=== PATIENT | female | born 1950 | race Caucasian/White ===

== ENCOUNTER → 2017-04-16 | Outpatient (CLI) | payer BC ==
[~2017-04-16] MED LIST: CINN500C2 PO; FLUO40CA2 PO; LOSA1TAB17 PO; METF10002 PO; OMEP20CA9 PO
== END | disposition home or self-care (01) ==
LOC: RAD 08:37
PROVIDERS: ATTEND Nurse Practitioner Primary Care
DX: G93.89 Other specified disorders of brain (principal); R90.82 White matter disease, unspecified
CPT/HCPCS: 70551

== ENCOUNTER 2018-08-24 15:13 | Inpatient (IN) | payer BC, MEDICARE ==
[~2018-08-24] VITALS: Ht 167.6 cm; Wt 97.5 kg
[~2018-08-24 15:13] MED LIST changes: -LOSA1TAB17 PO; +LOSA1TAB22 PO
[2018-08-24 16:05] LABS: BASOPHILS # (AUTO) 0.09 x10^3/uL (0-0.1); BASOPHILS % (AUTO) 1 % (0-1); EOSINOPHILS # (AUTO) 0.21 x10^3/uL (0-0.4); EOSINOPHILS % (AUTO) 2 % (1-7); LYMPHOCYTES # (AUTO) 1.75 x10^3/uL (1-3.4); LYMPHOCYTES % (AUTO) 19 % (22-44); MD NO; MEAN CORPUSCULAR HEMOGLOBIN 28.6 pg (27.0-34.8); MEAN CORPUSCULAR HGB CONC 33.2 g/dL (32.4-35.8); MEAN CORPUSCULAR VOLUME 86.2 fL (80-100); MEAN PLATELET VOLUME 8.5 fL (7.4-10.4); MONOCYTES # (AUTO) 0.56 x10^3/uL (0.2-0.8); MONOCYTES % (AUTO) 6 % (2-9); NEUTROPHILS # (AUTO) 6.74 x10^3/uL (1.8-6.8); NEUTROPHILS % (AUTO) 72 % (42-75); PLATELET COUNT 263 x10^3/uL (130-400); RED BLOOD COUNT 4.42 x10^6/uL (3.82-5.3); RED CELL DISTRIBUTION WIDTH 13.2 % (9.6-15.2)
[2018-08-24 16:13] LABS: ALANINE AMINOTRANSFERASE 47 U/L (12-78); ALBUMIN 3.3 g/dL (3.4-5.0); ANION GAP 11 mmol/L (5-15); CALCIUM 7.6 mg/dL (8.5-10.1); CHLORIDE 108 mmol/L (98-107); CREATININE 1.01 mg/dL (0.55-1.02)
[2018-08-24 16:17] LABS: ALKALINE PHOSPHATASE 132 U/L (45-117); BILIRUBIN,TOTAL 0.3 mg/dL (0.2-1.0); TROPONIN I < 0.015 ng/mL (0.000-0.045)
[2018-08-24] MEDS ORDERED: SODIUM CHLORIDE FLUSH 10ML SYR IVF ONE (17:00)
[2018-08-24] MEDS ORDERED: NITROGLYCERIN SINGLE TAB 0.4 MG SL PRN (17:30)
[2018-08-24] MEDS ORDERED: NITROGLYCERIN SINGLE TAB 0.4 MG SL ONE (17:51)
[2018-08-24] MEDS ORDERED: SODIUM CHLORIDE FLUSH 10ML SYR IVF PRN (18:30)
[2018-08-24] MEDS ORDERED: ONDANSETRON 2MG/ML, 2ML ONE (18:45)
[2018-08-24] MEDS ORDERED: ACETAMINOPHEN 325 MG TABLET ONE (18:45)
[2018-08-24] MEDS ORDERED: ACETAMINOPHEN 325 MG TABLET PO ONE (19:00)
[2018-08-24] MEDS ORDERED: ONDANSETRON 2MG/ML, 2ML IVPush ONE (19:00)
[2018-08-24] MEDS ORDERED: ACETAMINOPHEN 325 MG TABLET PO PRN (19:30)
[2018-08-24] MEDS ORDERED: OXYcodone IR 5MG TABLET PO PRN (19:30)
[2018-08-24] MEDS ORDERED: CYCLOBENZAPRINE 10 MG TABLET PO PRN (19:30)
[2018-08-24] MEDS ORDERED: POLYETHYLENE GLYCOL 17 GM PACKET PO PRN (19:30)
[2018-08-24] MEDS ORDERED: DOCUSATE 100 MG CAPSULE PO PRN (19:30)
[2018-08-24] MEDS ORDERED: morphine SULFATE 10 MG/ML, 1ML IVPush PRN (19:30)
[2018-08-24] MEDS ORDERED: ONDANSETRON 2MG/ML, 2ML IVPush PRN (19:30)
[2018-08-24] MEDS ORDERED: NITROGLYCERIN 0.4 MG BOTTLE (25 TABS) SL PRN (19:30)
[2018-08-24] MEDS ORDERED: PROMETHAZINE 25 MG/ML, 1ML IM PRN (19:30)
[2018-08-24] MEDS ORDERED: ONDANSETRON ODT 4 MG PO PRN (19:30)
[2018-08-24] MEDS ORDERED: BISACODYL 10 MG SUPP PR PRN (19:30)
[2018-08-24] MEDS ORDERED: hydrALAzine 20 MG/ML, 1ML IVPush PRN (19:30)
[2018-08-24] MEDS ORDERED: LABETALOL 5MG/ML, 20ML IVPush PRN (19:30)
[2018-08-24 19:45] LABS: FREE T4 (FREE THYROXINE) 1.18 ng/dL (0.76-1.46); THYROID STIMULATING HORMONE 2.32 mIU/L (0.358-3.740)
[2018-08-24 20:05] LABS: HEMOGLOBIN A1C 7.4 % (4.2-6.3)
[2018-08-24] MEDS: INSULIN LISPRO 100 UNITS/ML, PEN SQ-INSULIN SCH (20:23)
[2018-08-24] MEDS: HEPARIN 5,000 UNITS/ML, 1ML SQ SCH (20:48)
[2018-08-24 21:46] LABS: MICROSCOPIC AUTO
[2018-08-24 21:48] LABS: CULTURE INDICATED? YES
[2018-08-24 22:00] VITALS: BP 180/106
[2018-08-24] MEDS ORDERED: METOPROLOL 1 MG/ML, 5ML ONE (22:12)
[2018-08-24] MEDS ORDERED: METOPROLOL 1 MG/ML, 5ML IVPush ONE (22:30)
[2018-08-24 22:33] LABS: TROPONIN I 0.133 ng/mL (0.000-0.045)
[2018-08-24 22:50] VITALS: BP 167/85
[2018-08-24] MEDS: CEFTRIAXONE PMX 1GM/50ML 50 ML IV SCH (23:53)
[2018-08-25 02:24] VITALS: BP 149/81
[2018-08-25 02:46] LABS: BASOPHILS # (AUTO) 0.07 x10^3/uL (0-0.1); BASOPHILS % (AUTO) 1 % (0-1); EOSINOPHILS # (AUTO) 0.35 x10^3/uL (0-0.4); EOSINOPHILS % (AUTO) 4 % (1-7); LYMPHOCYTES # (AUTO) 2.61 x10^3/uL (1-3.4); LYMPHOCYTES % (AUTO) 27 % (22-44); MD NO; MEAN CORPUSCULAR HEMOGLOBIN 28.8 pg (27.0-34.8); MEAN CORPUSCULAR HGB CONC 33.3 g/dL (32.4-35.8); MEAN CORPUSCULAR VOLUME 86.4 fL (80-100); MEAN PLATELET VOLUME 8.6 fL (7.4-10.4); MONOCYTES # (AUTO) 0.71 x10^3/uL (0.2-0.8); MONOCYTES % (AUTO) 7 % (2-9); NEUTROPHILS # (AUTO) 6.05 x10^3/uL (1.8-6.8); NEUTROPHILS % (AUTO) 62 % (42-75); PLATELET COUNT 267 x10^3/uL (130-400); RED BLOOD COUNT 4.41 x10^6/uL (3.82-5.3); RED CELL DISTRIBUTION WIDTH 13.1 % (9.6-15.2)
[2018-08-25 03:00] LABS: ALANINE AMINOTRANSFERASE 44 U/L (12-78); ALBUMIN 3.1 g/dL (3.4-5.0); ANION GAP 7 mmol/L (5-15); CALCIUM 7.8 mg/dL (8.5-10.1); CHLORIDE 107 mmol/L (98-107); CREATININE 1.02 mg/dL (0.55-1.02)
[2018-08-25 03:02] LABS: ALKALINE PHOSPHATASE 118 U/L (45-117); BILIRUBIN,TOTAL 0.3 mg/dL (0.2-1.0); CHOL/HDL RATIO 4.2; CHOLESTEROL, TOTAL 159 mg/dL (140-239); HDL CHOL % 24 % (28-40); HDL CHOLESTEROL (DIRECT) 38 mg/dL (40-60); LDL CHOLESTEROL,CALCULATED 83 mg/dL (54-169); LDL/HDL RATIO 2.2 (0.5-3.0); TOTAL PROTEIN 7.3 g/dL (6.4-8.2); TRIGLYCERIDES 188 mg/dL (50-200); VLDL CHOLESTEROL 38 mg/dL (0-25)
[2018-08-25] MEDS: HEPARIN 5,000 UNITS/ML, 1ML SQ SCH ×3 (04:59→20:09)
[2018-08-25] MEDS: OMEPRAZOLE 20 MG CAPSULE.DR PO SCH (05:01)
[2018-08-25] MEDS ORDERED: ASPIRIN 325 MG TABLET EC PO SCH (06:00)
[2018-08-25] MEDS: INSULIN LISPRO 100 UNITS/ML, PEN SQ-INSULIN SCH ×4 (08:55→20:16)
[2018-08-25] MEDS: HYDROCHLOROTHIAZIDE 25 MG TABLET PO SCH (08:57)
[2018-08-25] MEDS: FLUOXETINE HCL 20 MG CAPSULE PO SCH (08:57)
[2018-08-25] MEDS: LOSARTAN 50MG TABLET PO SCH (08:57)
[2018-08-25 09:40] VITALS: BP 148/87
[2018-08-25] MEDS ORDERED: SODIUM CHLORIDE 0.9% 1,000 ML IV ONE (11:36)
[2018-08-25 12:21] VITALS: BP 146/84
[2018-08-25] MEDS ORDERED: OMEG1CAP6 PO (12:59)
[2018-08-25] MEDS ORDERED: TICAGRELOR 90 MG TABLET ONE (13:16)
[2018-08-25] MEDS ORDERED: BIVALIRUDIN 250 MG ONE (13:16)
[2018-08-25] MEDS ORDERED: MIDAZOLAM 1 MG/ML, 5ML ONE (13:16)
[2018-08-25] MEDS ORDERED: FENTANYL PF 100 MCG/2ML ONE (13:16)
[2018-08-25] MEDS ORDERED: NITROGLYCERIN 5 MG/ML, 10ML ONE (13:16)
[2018-08-25] MEDS ORDERED: VERAPAMIL 2.5 MG/ML, 2ML ONE (13:16)
[2018-08-25] MEDS ORDERED: HEPARIN 1,000 UNITS/ML, 10ML ONE (13:17)
[2018-08-25] MEDS ORDERED: LIDOCAINE/PF 1%, 30ML ONE (13:17)
[2018-08-25] MEDS ORDERED: AMLODIPINE 2.5 MG TABLET PO ONE (17:30)
[2018-08-25] MEDS: CLOPIDOGREL 75 MG TABLET PO SCH (17:30)
[2018-08-25] MEDS ORDERED: AMLODIPINE 2.5 MG TABLET ONE (17:32)
[2018-08-25] MEDS ORDERED: CARVEDILOL 6.25 MG TABLET PO SCH (18:00)
[2018-08-25] MEDS: ATORVASTATIN 20 MG TABLET PO SCH (20:09)
[2018-08-25 20:31] VITALS: BP 123/77
[2018-08-25] MEDS: CEFTRIAXONE PMX 1GM/50ML 50 ML IV SCH (22:57)
[2018-08-26 01:12] VITALS: BP 132/65
[2018-08-26] MEDS: ASPIRIN 81 MG TABLET EC PO SCH (05:04)
[2018-08-26] MEDS: OMEPRAZOLE 20 MG CAPSULE.DR PO SCH (05:04)
[2018-08-26] MEDS: HEPARIN 5,000 UNITS/ML, 1ML SQ SCH ×3 (05:04→20:13)
[2018-08-26 05:49] LABS: ANION GAP 9 mmol/L (5-15); CALCIUM 8.2 mg/dL (8.5-10.1); CHLORIDE 107 mmol/L (98-107); CREATININE 1.13 mg/dL (0.55-1.02)
[2018-08-26 08:09] VITALS: BP 153/84
[2018-08-26] MEDS: INSULIN LISPRO 100 UNITS/ML, PEN SQ-INSULIN SCH ×4 (08:10→20:27)
[2018-08-26] MEDS: HYDROCHLOROTHIAZIDE 25 MG TABLET PO SCH (08:10)
[2018-08-26] MEDS: LOSARTAN 50MG TABLET PO SCH (08:11)
[2018-08-26] MEDS: CLOPIDOGREL 75 MG TABLET PO SCH (08:11)
[2018-08-26] MEDS: FLUOXETINE HCL 20 MG CAPSULE PO SCH (08:11)
[2018-08-26 12:40] VITALS: BP 147/79
[2018-08-26 19:14] VITALS: BP 138/72
[2018-08-26] MEDS: ATORVASTATIN 20 MG TABLET PO SCH (20:12)
[2018-08-26] MEDS: CEFTRIAXONE PMX 1GM/50ML 50 ML IV SCH (23:30)
[2018-08-27 01:39] VITALS: BP 129/78
[2018-08-27] MEDS: OMEPRAZOLE 20 MG CAPSULE.DR PO SCH (05:10)
[2018-08-27] MEDS: ASPIRIN 81 MG TABLET EC PO SCH (05:10)
[2018-08-27] MEDS: HEPARIN 5,000 UNITS/ML, 1ML SQ SCH (05:10)
[2018-08-27 05:39] LABS: ANION GAP 8 mmol/L (5-15); CALCIUM 8.5 mg/dL (8.5-10.1); CHLORIDE 107 mmol/L (98-107); CREATININE 0.87 mg/dL (0.55-1.02)
[2018-08-27] MEDS: INSULIN LISPRO 100 UNITS/ML, PEN SQ-INSULIN SCH ×2 (07:00→11:49)
[2018-08-27 07:27] VITALS: BP 151/85
[2018-08-27] MEDS: HYDROCHLOROTHIAZIDE 25 MG TABLET PO SCH (08:31)
[2018-08-27] MEDS: FLUOXETINE HCL 20 MG CAPSULE PO SCH (08:31)
[2018-08-27] MEDS: CLOPIDOGREL 75 MG TABLET PO SCH (08:31)
[2018-08-27] MEDS: LOSARTAN 50MG TABLET PO SCH (08:32)
[2018-08-27] MEDS ORDERED: CEFD300C37 PO (11:34)
[2018-08-27] MEDS ORDERED: ATOR20TA37 PO (11:34)
[2018-08-27] MEDS ORDERED: CLOP75TA PO (11:34)
[2018-08-27] MEDS ORDERED: ASPI81TA45 PO (11:34)
[2018-08-27 13:09] VITALS: BP 135/80
== END 2018-08-27 13:51 | disposition home or self-care (01) | DRG 282 ==
LOC: ED 18:05 → EDIP 18:06 → ED 18:21 → 5SO 20:34 → DCLOUNGE 08-27 13:35
PROVIDERS: ADMIT Internal Medicine; ATTEND Internal Medicine
PROC: 4A023N7 Measurement of Cardiac Sampling and Pressure, Left Heart, Percutaneous Approach (ICD-10-PCS; principal; 2018-08-25)
PROC: B2111ZZ Fluoroscopy of Multiple Coronary Arteries using Low Osmolar Contrast (ICD-10-PCS; 2018-08-25)
PROC: B2151ZZ Fluoroscopy of Left Heart using Low Osmolar Contrast (ICD-10-PCS; 2018-08-25)
DX: I21.4 Non-ST elevation (NSTEMI) myocardial infarction (principal); I25.110 Atherosclerotic heart disease of native coronary artery with unstable angina pectoris; I25.82 Chronic total occlusion of coronary artery; I16.0 Hypertensive urgency; F41.9 Anxiety disorder, unspecified; K21.9 Gastro-esophageal reflux disease without esophagitis; I10 Essential (primary) hypertension; E11.65 Type 2 diabetes mellitus with hyperglycemia; E78.5 Hyperlipidemia, unspecified; F32.9 Major depressive disorder, single episode, unspecified; I34.0 Nonrheumatic mitral (valve) insufficiency; J06.9 Acute upper respiratory infection, unspecified; Z82.49 Family history of ischemic heart disease and other diseases of the circulatory system; Z87.891 Personal history of nicotine dependence; Z90.710 Acquired absence of both cervix and uterus; Z88.0 Allergy status to penicillin; Z79.82 Long term (current) use of aspirin; Z79.899 Other long term (current) drug therapy
CPT/HCPCS: 36415; 71045; 80048; 80053; 80061; 81001; 82962; 83036; 83735; 84439; 84443; 84484; 85025; 87040; 87086; 93005; 93306; 93458; 96374; 99156; 99157; 99285; C1769; C1894; G0378; J0583; J0696; J1644; J2250; J2405; J3010; J3490; J1815; J7030; Q9967

== ENCOUNTER 2018-09-01 12:03 | Inpatient (IN) | payer BC, MEDICARE ==
[~2018-09-01] VITALS: Ht 167.6 cm; Wt 100.0 kg
[~2018-09-01 12:03] MED LIST changes: +ASPI81TA45 PO; +ATOR20TA37 PO; +CEFD300C37 PO; +CLOP75TA PO; +OMEG1CAP6 PO
[2018-09-01] MEDS ORDERED: VANCOMYCIN PMX 1GM/200ML 200 ML IVPB SCH (12:30)
[2018-09-01] MEDS ORDERED: ATOR20TA37 PO (12:52)
[2018-09-01] MEDS ORDERED: ASPI-496 PO (12:52)
[2018-09-01] MEDS ORDERED: CLOP75TA52 PO (12:52)
[2018-09-01] MEDS ORDERED: FENTANYL PF 100 MCG/2ML ONE (13:56)
[2018-09-01] MEDS ORDERED: VANCOMYCIN PMX 1GM/200ML 200 ML ONE (13:57)
[2018-09-01] MEDS ORDERED: MIDAZOLAM 1 MG/ML, 5ML ONE (13:57)
[2018-09-01] MEDS ORDERED: LIDOCAINE-MPF 1%, 5ML ONE (13:57)
[2018-09-01] MEDS ORDERED: VANCOMYCIN 500 MG ONE (13:57)
[2018-09-01] MEDS ORDERED: ZOLPIDEM 5MG TABLET PO PRN (16:00)
[2018-09-01] MEDS ORDERED: HYDROcodone/APAP 5/325 TABLET PO PRN (16:00)
[2018-09-01] MEDS ORDERED: HOLD MEDICATION MC PRN (16:00)
[2018-09-01] MEDS: SODIUM CHLORIDE 0.9% 1,000 ML IV SCH ×2 (17:20→20:24)
[2018-09-01] MEDS: metFORMIN 500 MG TABLET PO SCH (18:21)
[2018-09-01] MEDS ORDERED: LABETALOL 5MG/ML, 20ML IVPush PRN (18:30)
[2018-09-01] MEDS: ACETAMINOPHEN 325 MG TABLET PO PRN (18:37)
[2018-09-01 19:48] VITALS: BP 160/84
[2018-09-01] MEDS: SODIUM CHLORIDE FLUSH 10ML SYR IVF SCH (20:37)
[2018-09-01] MEDS ORDERED: ATORVASTATIN 20 MG TABLET PO SCH (21:00)
[2018-09-02 00:06] VITALS: BP 160/92
[2018-09-02] MEDS: ACETAMINOPHEN 325 MG TABLET PO PRN ×2 (00:19→10:58)
[2018-09-02] MEDS ORDERED: ASPIRIN 81 MG TABLET EC PO SCH (06:00)
[2018-09-02 06:45] VITALS: BP 163/95
[2018-09-02] MEDS: SODIUM CHLORIDE FLUSH 10ML SYR IVF SCH (08:23)
[2018-09-02] MEDS: metFORMIN 500 MG TABLET PO SCH (08:23)
[2018-09-02] MEDS ORDERED: CLOPIDOGREL 75 MG TABLET PO SCH (09:00)
[2018-09-02] MEDS ORDERED: LOSARTAN 50MG TABLET PO SCH (09:00)
[2018-09-02] MEDS ORDERED: FLUOXETINE HCL 20 MG CAPSULE PO SCH (09:00)
[2018-09-02] MEDS ORDERED: CARV3.122 PO (09:08)
== END 2018-09-02 11:30 | disposition home or self-care (01) | DRG 242 ==
LOC: CACL 12:03 → ORIP 15:46 → 5SO 16:05 → DCLOUNGE 09-02 11:20
PROVIDERS: ADMIT Internal Medicine Cardiovascular Disease; ATTEND Internal Medicine Cardiovascular Disease
PROC: 0JH606Z Insertion of Pacemaker, Dual Chamber into Chest Subcutaneous Tissue and Fascia, Open Approach (ICD-10-PCS; principal; 2018-09-01)
PROC: 02H63JZ Insertion of Pacemaker Lead into Right Atrium, Percutaneous Approach (ICD-10-PCS; 2018-09-01)
PROC: 02HK3JZ Insertion of Pacemaker Lead into Right Ventricle, Percutaneous Approach (ICD-10-PCS; 2018-09-01)
PROC: 4B02XSZ Measurement of Cardiac Pacemaker, External Approach (ICD-10-PCS; 2018-09-01)
DX: I44.2 Atrioventricular block, complete (principal); I21.9 Acute myocardial infarction, unspecified; E11.9 Type 2 diabetes mellitus without complications; E66.9 Obesity, unspecified; I45.4 Nonspecific intraventricular block; I10 Essential (primary) hypertension; K21.9 Gastro-esophageal reflux disease without esophagitis; I25.10 Atherosclerotic heart disease of native coronary artery without angina pectoris; E78.2 Mixed hyperlipidemia; E55.9 Vitamin D deficiency, unspecified; F32.9 Major depressive disorder, single episode, unspecified; Z88.0 Allergy status to penicillin; Z68.35 Body mass index [BMI] 35.0-35.9, adult; Z79.84 Long term (current) use of oral hypoglycemic drugs
CPT/HCPCS: 33208; 71045; 93005; 99156; 99157; C1779; C1785; C1892; G0378; J2250; J3010; J3370

== ENCOUNTER → 2018-11-24 | Outpatient (CLI) | payer BC, MEDICARE ==
[~2018-11-24] MED LIST changes: +ASPI-496 PO; +CARV3.122 PO; +CLOP75TA52 PO; +REGADENOSON 0.4 MG/5 ML SYRINGE ONE
== END | disposition home or self-care (01) ==
LOC: CVU 10:44
PROVIDERS: ATTEND Internal Medicine Cardiovascular Disease
DX: I65.23 Occlusion and stenosis of bilateral carotid arteries (principal); I10 Essential (primary) hypertension; E78.5 Hyperlipidemia, unspecified; I25.2 Old myocardial infarction; E11.9 Type 2 diabetes mellitus without complications; Z95.0 Presence of cardiac pacemaker
CPT/HCPCS: 78452; 93017; 93880; A9502; J2785

== ENCOUNTER → 2019-01-10 | Outpatient (CLI) | payer BC, MEDICARE ==
[~2019-01-10] MED LIST changes: +AMLO10TA8 PO; +APIX2.5T PO; +CARV3.1212 PO; +GLYB2.5T2 PO; +LISI2.5T PO; -REGADENOSON 0.4 MG/5 ML SYRINGE ONE; +ROSU20TA2 PO
== END | disposition home or self-care (01) ==
LOC: STAR 11:38
PROVIDERS: ATTEND Podiatrist Foot & Ankle Surgery
DX: Z01.818 Encounter for other preprocedural examination (principal); M21.6X2 Other acquired deformities of left foot; E11.9 Type 2 diabetes mellitus without complications; Z88.0 Allergy status to penicillin; Z86.79 Personal history of other diseases of the circulatory system
CPT/HCPCS: 93005

== ENCOUNTER 2019-01-14 11:40 | Day surgery (SDC) | payer BC, MEDICARE ==
[~2019-01-14] VITALS: Ht 167.6 cm; Wt 89.4 kg
[2019-01-14] MEDS ORDERED: LACTATED RINGERS 1,000 ML IV SCH (12:19)
[2019-01-14 12:29] VITALS: BP 151/80
[2019-01-14] MEDS ORDERED: MIDAZOLAM 1 MG/ML, 2ML ONE (12:54)
[2019-01-14] MEDS ORDERED: FENTANYL PF 100 MCG/2ML ONE (12:54)
[2019-01-14] MEDS ORDERED: ROPIvacaine/PF 0.2%, 20 ML ONE (12:55)
[2019-01-14] MEDS ORDERED: LIDOCAINE-MPF 2% ,5ML ONE (12:56)
[2019-01-14] MEDS ORDERED: LIDOCAINE 2%, 6 ML JEL.PF.APP MM ONE (13:09)
[2019-01-14] MEDS ORDERED: EPHEDRINE 50 MG/ML, 1ML ONE (13:20)
[2019-01-14] MEDS ORDERED: SUCCINYLCHOLINE 20 MG/ML, 10ML ONE (13:20)
[2019-01-14] MEDS ORDERED: CLINDAMYCIN 150 MG/ML, 6ML ONE (13:33)
[2019-01-14] MEDS ORDERED: DEXAMETHASONE 4 MG/ML, 1ML ONE (13:53)
[2019-01-14] MEDS ORDERED: ROCURONIUM 10MG/ML,5ML ONE (13:53)
[2019-01-14] MEDS ORDERED: ONDANSETRON 2MG/ML, 2ML ONE ×2 (13:53)
[2019-01-14] MEDS ORDERED: PROPOFOL 10 MG/ML, 20ML ONE (13:53)
[2019-01-14] MEDS ORDERED: ACETAMINOPHEN 325 MG TABLET PO PRN (14:00)
[2019-01-14] MEDS ORDERED: PROMETHAZINE 25 MG/ML, 1ML IV PRN (14:00)
[2019-01-14] MEDS ORDERED: MORPHINE SULFATE 4 MG/ML, 1ML IVPush PRN (14:00)
[2019-01-14] MEDS ORDERED: PROMETHAZINE 12.5 MG SUPP PR PRN (14:00)
[2019-01-14] MEDS ORDERED: ONDANSETRON 2MG/ML, 2ML IV PRN (14:00)
[2019-01-14] MEDS ORDERED: HALOPERIDOL 5 MG/ML IV PRN (14:00)
[2019-01-14] MEDS ORDERED: OXYcodone 5 MG/5 ML ORAL.SOL UDC PO PRN (14:00)
[2019-01-14] MEDS ORDERED: DIAZEPAM 5 MG/ML, 10ML VIAL IVPush PRN (14:00)
[2019-01-14] MEDS ORDERED: hydrALAzine 20 MG/ML, 1ML IV PRN (14:00)
[2019-01-14] MEDS ORDERED: MIDAZOLAM 1 MG/ML, 2ML IV PRN (14:00)
[2019-01-14] MEDS ORDERED: HYDROmorphone 2 MG/ML, 1ML IVPush PRN (14:00)
[2019-01-14] MEDS ORDERED: FENTANYL PF 100 MCG/2ML IV PRN (14:00)
[2019-01-14] MEDS ORDERED: MEPERIDINE/PF 25MG/0.5ML IVPush PRN (14:00)
[2019-01-14] MEDS ORDERED: ONDANSETRON ODT 8 MG PO PRN (14:00)
[2019-01-14] MEDS ORDERED: ALBUTEROL SULFATE 2.5 MG/3 ML NPPB PRN (14:00)
[2019-01-14] MEDS ORDERED: LABETALOL 5 MG/ML SYRINGE IV PRN (14:00)
[2019-01-14] MEDS ORDERED: EPHEDRINE 50 MG/ML, 1ML IVPush PRN (14:00)
[2019-01-14] MEDS ORDERED: ALBUTEROL SULFATE 2.5 MG/3 ML ONE (14:43)
== END 2019-01-14 17:30 | disposition home or self-care (01) ==
LOC: OUT 11:40
PROVIDERS: ATTEND Podiatrist Foot & Ankle Surgery
DX: M92.62 Juvenile osteochondrosis of tarsus, left ankle (principal); M89.8X7 Other specified disorders of bone, ankle and foot; E78.2 Mixed hyperlipidemia; I10 Essential (primary) hypertension; I48.91 Unspecified atrial fibrillation; K21.9 Gastro-esophageal reflux disease without esophagitis; J44.9 Chronic obstructive pulmonary disease, unspecified; E11.9 Type 2 diabetes mellitus without complications; I25.10 Atherosclerotic heart disease of native coronary artery without angina pectoris; Z88.0 Allergy status to penicillin; Z95.0 Presence of cardiac pacemaker; Z79.82 Long term (current) use of aspirin; Z79.84 Long term (current) use of oral hypoglycemic drugs
CPT/HCPCS: 28118; 64445; 82962; 94640; C1713; J0330; J0360; J1100; J2250; J2405; J2704; J2795; J3010; J7120

== ENCOUNTER → 2019-02-01 | Outpatient (CLI) | payer MEDICARE ==
[~2019-02-01] MED LIST changes: +OMNIPAQUE 350 MG/ML, 100ML BOTTLE ONE
== END | disposition home or self-care (01) ==
LOC: CFH 09:57
PROVIDERS: ATTEND Internal Medicine Geriatric Medicine
DX: C49.A4 Gastrointestinal stromal tumor of large intestine (principal); K43.9 Ventral hernia without obstruction or gangrene; K86.1 Other chronic pancreatitis; Z90.49 Acquired absence of other specified parts of digestive tract
CPT/HCPCS: 74170; Q9967

== ENCOUNTER 2019-05-13 07:05 | Outpatient (CLI) | payer MEDICARE | END 2019-05-13 23:59 | disposition home or self-care (01) | LOC: CVU 07:05 | PROVIDERS: ATTEND Internal Medicine Cardiovascular Disease | DX: M79.604 Pain in right leg (principal); M79.605 Pain in left leg | CPT/HCPCS: 93922 ==

== ENCOUNTER 2019-06-20 13:26 | Outpatient (CLI) | payer MEDICARE ==
[~2019-06-20 13:26] MED LIST changes: -OMNIPAQUE 350 MG/ML, 100ML BOTTLE ONE
== END 2019-06-20 23:59 | disposition home or self-care (01) ==
LOC: CFH 13:26
PROVIDERS: ATTEND Internal Medicine Cardiovascular Disease
DX: R07.9 Chest pain, unspecified (principal); M47.814 Spondylosis without myelopathy or radiculopathy, thoracic region; Z95.0 Presence of cardiac pacemaker
CPT/HCPCS: 71046

== ENCOUNTER 2019-10-03 13:14 | Emergency (ER) | payer MEDICARE ==
[~2019-10-03] VITALS: Ht 167.6 cm; Wt 91.5 kg
[2019-10-03 14:08] LABS: BASOPHILS # (AUTO) 0.04 x10^3/uL (0-0.1); BASOPHILS % (AUTO) 1 % (0-1); EOSINOPHILS # (AUTO) 0.08 x10^3/uL (0-0.4); EOSINOPHILS % (AUTO) 1 % (1-7); LYMPHOCYTES # (AUTO) 1.15 x10^3/uL (1-3.4); LYMPHOCYTES % (AUTO) 17 % (22-44); MD NO; MEAN CORPUSCULAR HEMOGLOBIN 28.6 pg (27.0-34.8); MEAN CORPUSCULAR HGB CONC 32.6 g/dL (32.4-35.8); MEAN CORPUSCULAR VOLUME 87.5 fL (80-100); MEAN PLATELET VOLUME 8.2 fL (7.4-10.4); MONOCYTES # (AUTO) 0.41 x10^3/uL (0.2-0.8); MONOCYTES % (AUTO) 6 % (2-9); NEUTROPHILS # (AUTO) 5.09 x10^3/uL (1.8-6.8); NEUTROPHILS % (AUTO) 75 % (42-75); PLATELET COUNT 308 x10^3/uL (130-400); RED BLOOD COUNT 3.92 x10^6/uL (3.82-5.3); RED CELL DISTRIBUTION WIDTH 14.1 % (9.6-15.2)
[2019-10-03 14:14] LABS: ALBUMIN 3.1 g/dL (3.4-5.0); ANION GAP 8 mmol/L (5-15); CALCIUM 8.1 mg/dL (8.5-10.1); CHLORIDE 106 mmol/L (98-107); CREATININE 0.84 mg/dL (0.55-1.02)
--- NOTE | 2019-10-03 15:51 | NUR ---
PT TO ROOM FROM LOBBY
[2019-10-03] MEDS ORDERED: SODIUM CHLORIDE FLUSH 10ML SYR IVF ONE (16:00)
--- NOTE | 2019-10-03 16:00 | NUR ---
THIS IS A 69 YEAR OLD FEMALE WHO C.O OF "I HAVE HAD DIARRHEA X 5 WEEKS, MY PRIMARY TOLD ME TO COME IN." DENIES RECENT TRAVEL AND ABX. DISCUSSED PLAN OF CARE, STOOL SENT TO LAB. WARM BLANKET GIVEN.
[2019-10-03 16:05] LABS: CULTURE INDICATED? YES; MICROSCOPIC INDICATED
[2019-10-03 16:36] LABS: CLOSTRIDIUM DIFFICILE ANTIGEN NEGATIVE; CLOSTRIDIUM DIFFICILE TOXIN NEGATIVE (Negative)
[2019-10-03 17:07] VITALS: BP 126/77
--- NOTE | 2019-10-03 17:15 | NUR ---
PT TO CT SCAN
--- NOTE | 2019-10-03 17:36 | NUR ---
PT BACK FROM CT SCAN
[2019-10-03] MEDS ORDERED: OMNIPAQUE 350 MG/ML, 100ML BOTTLE ONE (17:38)
--- NOTE | 2019-10-03 18:27 | NUR ---
Patient/Caregiver given discharge instructions and they have confirmed that they understand the instructions. Patient ambulatory with steady gait.
== END 2019-10-03 18:28 | disposition home or self-care (01) ==
LOC: ED 16:05
DX: R19.7 Diarrhea, unspecified (principal); E11.65 Type 2 diabetes mellitus with hyperglycemia; I10 Essential (primary) hypertension
CPT/HCPCS: 36415; 74177; 80048; 81001; 82040; 85025; 87086; 87324; 89055; 99284; Q9967

== ENCOUNTER 2019-10-28 16:16 | Emergency (ER) | payer MEDICARE ==
[~2019-10-28] VITALS: Ht 167.6 cm; Wt 92.0 kg
[~2019-10-28 16:16] MED LIST changes: +ACID1TAB7 PO; +CARV12.52 PO
--- NOTE | 2019-10-28 17:01 | NUR ---
THIS IS A 69 YO F W/ C/O HTN X3 DAYS, BLURRED VISION, MURPHY AND OCCASIONAL CHEST "PINCHING". WAS SEEN 10/06/19 FOR SOB AND CP. DC AMLODIPINE 10/25/19. HTN X3 DAYS. RESP EVEN AND UNLABORED. VS STABLE. CURRENT BP 156/79. NADN. PT IS RESTING ON GURNEY W/ CALL LIGHT IN REACH. AWAITING EVAL FROM ED PROVIDER. DENIES FURTHER NEEDS AT THIS TIME.
[2019-10-28 18:25] LABS: BASOPHILS # (AUTO) 0.03 x10^3/uL (0-0.1); BASOPHILS % (AUTO) 0 % (0-1); EOSINOPHILS # (AUTO) 0.12 x10^3/uL (0-0.4); EOSINOPHILS % (AUTO) 2 % (1-7); LYMPHOCYTES # (AUTO) 1.64 x10^3/uL (1-3.4); LYMPHOCYTES % (AUTO) 21 % (22-44); MD NO; MEAN CORPUSCULAR HGB CONC 33.3 g/dL (32.4-35.8); MEAN CORPUSCULAR VOLUME 87.2 fL (80-100); MONOCYTES # (AUTO) 0.43 x10^3/uL (0.2-0.8); MONOCYTES % (AUTO) 5 % (2-9); NEUTROPHILS # (AUTO) 5.71 x10^3/uL (1.8-6.8); NEUTROPHILS % (AUTO) 72 % (42-75); PLATELET COUNT 186 x10^3/uL (130-400); RED BLOOD COUNT 4.04 x10^6/uL (3.82-5.3); RED CELL DISTRIBUTION WIDTH 14.2 % (9.6-15.2)
--- NOTE | 2019-10-28 18:26 | NUR ---
PT TO CT
[2019-10-28] MEDS ORDERED: MORPHINE SULFATE 4 MG/ML, 1ML IVPush PRN (18:30)
[2019-10-28] MEDS ORDERED: SODIUM CHLORIDE FLUSH 10ML SYR IVF ONE (18:30)
[2019-10-28] MEDS ORDERED: ASPIRIN 81 MG TABLET CHEW PO ONE (18:30)
[2019-10-28] MEDS ORDERED: METOPROLOL 1 MG/ML, 5ML IVPush PRN (18:30)
[2019-10-28] MEDS ORDERED: ASPIRIN 81 MG TABLET CHEW ONE (18:31)
[2019-10-28] MEDS ORDERED: METOPROLOL 1 MG/ML, 5ML ONE (18:31)
[2019-10-28] MEDS ORDERED: MORPHINE SULFATE 4 MG/ML, 1ML ONE (18:31)
[2019-10-28 18:34] LABS: ALBUMIN 3.5 g/dL (3.4-5.0); ANION GAP 7 mmol/L (5-15); CALCIUM 8.3 mg/dL (8.5-10.1); CHLORIDE 110 mmol/L (98-107)
--- NOTE | 2019-10-28 18:38 | NUR ---
PT REFUSING MORPHINE AND REQ TYLENOL. WILL UPDATE PROVIDER.
[2019-10-28 18:39] LABS: ALANINE AMINOTRANSFERASE 23 U/L (12-78); ALKALINE PHOSPHATASE 63 U/L (45-117); BILIRUBIN,TOTAL 0.4 mg/dL (0.2-1.0); TOTAL PROTEIN 6.7 g/dL (6.4-8.2); TROPONIN I < 0.015 ng/mL (0.000-0.045)
--- NOTE | 2019-10-28 19:02 | NUR ---
REPORT FROM TY[facility], ASSUMING CARE OF PT AT THIS TIME
[2019-10-28] MEDS ORDERED: ACETAMINOPHEN 325 MG TABLET PO ONE (19:30)
[2019-10-28] MEDS ORDERED: ACETAMINOPHEN 325 MG TABLET ONE (19:39)
--- NOTE | 2019-10-28 19:40 | NUR ---
UPDATED ON PT WANTING TYLENOL FOR HEADACHE AND PREFERING TO NOT HAVE AN IV AT THIS TIME. ADDITIONAL ORDERS RECIEVED
--- NOTE | 2019-10-28 19:46 | NUR ---
PT MEDICATED PER MAR, PT UP TO RESTROOM NO ASSIST REQUIRED.
--- NOTE | 2019-10-28 20:48 | NUR ---
MD AT BEDSIDE TO DISCUSS POC WITH PT
[2019-10-28 21:15] VITALS: BP 141/83
--- NOTE | 2019-10-28 21:16 | NUR ---
Patient/Caregiver given discharge instructions and they have confirmed that they understand the instructions. Patient ambulatory with steady gait.
== END 2019-10-28 21:33 | disposition home or self-care (01) ==
LOC: ED 17:24
DX: R51 Headache (principal); I10 Essential (primary) hypertension; H53.8 Other visual disturbances; E78.5 Hyperlipidemia, unspecified; E11.9 Type 2 diabetes mellitus without complications; I25.10 Atherosclerotic heart disease of native coronary artery without angina pectoris; K21.9 Gastro-esophageal reflux disease without esophagitis; J44.9 Chronic obstructive pulmonary disease, unspecified
CPT/HCPCS: 36415; 70450; 80053; 83690; 84484; 85025; 93005; 99284

== ENCOUNTER 2019-12-09 17:12 | Inpatient (IN) | payer MEDICARE ==
[~2019-12-09] VITALS: Ht 165.1 cm; Wt 87.8 kg
--- NOTE | 2019-12-09 19:08 | NUR ---
PT HAS CO SOB, WEAKNESS, SLIGHT CHEST PRESSURE. PT STATE SHE HAS BEEN FEELING WEAK SINCE SEP. WAS IN CARDIOLOGY APPOINTMENT THURSDAY, WAS TOLD TO COME IN TODAY W WORSENING SYMPTOMS. PT HAS CARDIAC HX INCLUDING, [place] W STENTS, PACER. PT HAS OCCLUDED ARTERY. LABS DRAWN, IV ESTABLISHE, [employer] ADMINISTRATOR
[2019-12-09 19:13] LABS: BASOPHILS # (AUTO) 0.03 x10^3/uL (0-0.1); BASOPHILS % (AUTO) 1 % (0-1); EOSINOPHILS # (AUTO) 0.18 x10^3/uL (0-0.4); EOSINOPHILS % (AUTO) 3 % (1-7); LYMPHOCYTES # (AUTO) 1.21 x10^3/uL (1-3.4); LYMPHOCYTES % (AUTO) 19 % (22-44); MD NO; MEAN CORPUSCULAR HEMOGLOBIN 27.7 pg (27.0-34.8); MEAN CORPUSCULAR HGB CONC 32.3 g/dL (32.4-35.8); MEAN CORPUSCULAR VOLUME 85.6 fL (80-100); MEAN PLATELET VOLUME 9.7 fL (7.4-10.4); MONOCYTES # (AUTO) 0.41 x10^3/uL (0.2-0.8); MONOCYTES % (AUTO) 7 % (2-9); NEUTROPHILS # (AUTO) 4.52 x10^3/uL (1.8-6.8); NEUTROPHILS % (AUTO) 71 % (42-75); PLATELET COUNT 213 x10^3/uL (130-400); RED CELL DISTRIBUTION WIDTH 14.8 % (9.6-15.2)
[2019-12-09 19:21] LABS: ALANINE AMINOTRANSFERASE 30 U/L (12-78); ALBUMIN 3.4 g/dL (3.4-5.0); ANION GAP 8 mmol/L (5-15); CALCIUM 8.1 mg/dL (8.5-10.1); CHLORIDE 112 mmol/L (98-107); CREATININE 0.97 mg/dL (0.55-1.02)
[2019-12-09 19:26] LABS: ALKALINE PHOSPHATASE 74 U/L (45-117); BILIRUBIN,TOTAL 0.6 mg/dL (0.2-1.0); TOTAL PROTEIN 6.6 g/dL (6.4-8.2); TROPONIN I < 0.015 ng/mL (0.000-0.045)
--- NOTE | 2019-12-09 20:32 | NUR ---
[facility] AT BEDSIDE.
--- NOTE | 2019-12-09 20:42 | NUR ---
REPORT TO [facility]. PT STABLE, READY TO GO
[2019-12-09] MEDS ORDERED: ONDANSETRON ODT 4 MG PO PRN (21:00)
[2019-12-09] MEDS ORDERED: TEMPLATE NON-FORMULARY MED. (Metformin Hcl** 1,000 MG) PO SCH (21:00)
[2019-12-09] MEDS ORDERED: BISACODYL 10 MG SUPP PR PRN (21:00)
[2019-12-09] MEDS ORDERED: ACETAMINOPHEN 325 MG TABLET PO PRN (21:00)
[2019-12-09] MEDS ORDERED: POLYETHYLENE GLYCOL 17 GM PACKET PO PRN (21:00)
[2019-12-09] MEDS ORDERED: POTASSIUM CHLORIDE 20 MEQ TAB.ER.PRT PO ONE (21:00)
[2019-12-09] MEDS ORDERED: IRBE1TAB37 PO (21:55)
[2019-12-09] MEDS: FUROSEMIDE 20 MG/2 ML IV SCH (22:30)
[2019-12-09] MEDS: ATORVASTATIN 80 MG TABLET PO SCH (22:30)
[2019-12-09] MEDS: LACTOBACILLUS CHEW TABLET PO SCH (22:30)
[2019-12-09] MEDS: CARVEDILOL 12.5 MG TABLET PO SCH (22:31)
[2019-12-09] MEDS: APIXABAN 5 MG TABLET PO SCH (22:31)
[2019-12-09] MEDS: SODIUM CHLORIDE FLUSH 10ML SYR IVF SCH (22:32)
[2019-12-09] MEDS: ASPIRIN 81 MG TABLET CHEW PO SCH (22:35)
[2019-12-10 01:13] LABS: TROPONIN I < 0.015 ng/mL (0.000-0.045)
[2019-12-10 02:09] VITALS: BP 145/85
[2019-12-10] MEDS: ASPIRIN 81 MG TABLET CHEW PO SCH (05:50)
[2019-12-10 06:48] LABS: BASOPHILS # (AUTO) 0.04 x10^3/uL (0-0.1); BASOPHILS % (AUTO) 1 % (0-1); EOSINOPHILS # (AUTO) 0.15 x10^3/uL (0-0.4); EOSINOPHILS % (AUTO) 3 % (1-7); LYMPHOCYTES # (AUTO) 1.43 x10^3/uL (1-3.4); LYMPHOCYTES % (AUTO) 24 % (22-44); MD NO; MEAN CORPUSCULAR HEMOGLOBIN 27.5 pg (27.0-34.8); MEAN CORPUSCULAR HGB CONC 32.1 g/dL (32.4-35.8); MEAN CORPUSCULAR VOLUME 85.7 fL (80-100); MEAN PLATELET VOLUME 9.1 fL (7.4-10.4); MONOCYTES # (AUTO) 0.47 x10^3/uL (0.2-0.8); MONOCYTES % (AUTO) 8 % (2-9); NEUTROPHILS % (AUTO) 65 % (42-75); PLATELET COUNT 195 x10^3/uL (130-400); RED BLOOD COUNT 3.98 x10^6/uL (3.82-5.3); RED CELL DISTRIBUTION WIDTH 14.9 % (9.6-15.2)
[2019-12-10 07:01] LABS: ANION GAP 7 mmol/L (5-15); CALCIUM 8.1 mg/dL (8.5-10.1); CHLORIDE 110 mmol/L (98-107)
[2019-12-10 07:06] LABS: TROPONIN I < 0.015 ng/mL (0.000-0.045)
[2019-12-10] MEDS: FUROSEMIDE 20 MG/2 ML IV SCH ×2 (07:30→16:43)
[2019-12-10] MEDS ORDERED: POTASSIUM CHLORIDE 20 MEQ TAB.ER.PRT PO SCH (08:00)
[2019-12-10 08:20] VITALS: BP 123/91
[2019-12-10] MEDS ORDERED: REGADENOSON 0.4 MG/5 ML SYRINGE ONE (08:34)
[2019-12-10] MEDS: SENNA/DOCUSATE TABLET PO SCH (09:00)
[2019-12-10] MEDS: POTASSIUM CHLORIDE 20 MEQ TAB.ER.PRT PO SCH ×2 (11:05→16:43)
[2019-12-10] MEDS: LACTOBACILLUS CHEW TABLET PO SCH ×3 (11:05→20:14)
[2019-12-10] MEDS: FLUOXETINE HCL 20 MG CAPSULE PO SCH (11:06)
[2019-12-10] MEDS: CARVEDILOL 12.5 MG TABLET PO SCH ×2 (11:06→20:14)
[2019-12-10] MEDS: SODIUM CHLORIDE FLUSH 10ML SYR IVF SCH ×2 (11:06→20:15)
[2019-12-10] MEDS: OMEPRAZOLE 20 MG CAPSULE.DR PO SCH (11:06)
[2019-12-10] MEDS: APIXABAN 5 MG TABLET PO SCH (11:06)
[2019-12-10] MEDS: LISINOPRIL 10 MG TABLET PO SCH (13:30)
[2019-12-10 13:32] VITALS: BP 130/79
[2019-12-10] MEDS: INSULIN LISPRO 100 UNITS/ML, PEN SQ-INSULIN SCH ×2 (16:54→20:14)
[2019-12-10 20:12] VITALS: BP 150/89
[2019-12-10] MEDS: ATORVASTATIN 80 MG TABLET PO SCH (20:14)
[2019-12-11 02:22] VITALS: BP 140/88
[2019-12-11] MEDS: ASPIRIN 81 MG TABLET CHEW PO SCH (05:32)
[2019-12-11 05:48] LABS: ANION GAP 7 mmol/L (5-15); CALCIUM 8.2 mg/dL (8.5-10.1); CHLORIDE 107 mmol/L (98-107); CREATININE 0.74 mg/dL (0.55-1.02)
[2019-12-11] MEDS: INSULIN LISPRO 100 UNITS/ML, PEN SQ-INSULIN SCH ×4 (07:00→20:59)
[2019-12-11 07:07] VITALS: BP 148/90
[2019-12-11] MEDS: FLUOXETINE HCL 20 MG CAPSULE PO SCH (08:24)
[2019-12-11] MEDS: POTASSIUM CHLORIDE 20 MEQ TAB.ER.PRT PO SCH (08:25)
[2019-12-11] MEDS: CARVEDILOL 12.5 MG TABLET PO SCH ×2 (08:25→20:59)
[2019-12-11] MEDS: LACTOBACILLUS CHEW TABLET PO SCH ×3 (08:25→20:58)
[2019-12-11] MEDS: OMEPRAZOLE 20 MG CAPSULE.DR PO SCH (08:26)
[2019-12-11] MEDS: LISINOPRIL 10 MG TABLET PO SCH (08:26)
[2019-12-11] MEDS: SENNA/DOCUSATE TABLET PO SCH (08:26)
[2019-12-11] MEDS: FUROSEMIDE 20 MG/2 ML IV SCH (08:27)
[2019-12-11] MEDS: SODIUM CHLORIDE FLUSH 10ML SYR IVF SCH ×2 (08:29→20:59)
[2019-12-11 14:30] VITALS: BP 130/69
[2019-12-11 19:51] VITALS: BP 149/54
[2019-12-11] MEDS: ATORVASTATIN 80 MG TABLET PO SCH (20:59)
[2019-12-12 02:35] VITALS: BP 136/78
[2019-12-12] MEDS: ASPIRIN 81 MG TABLET CHEW PO SCH (05:08)
[2019-12-12 06:00] LABS: ANION GAP 5 mmol/L (5-15); CALCIUM 8.2 mg/dL (8.5-10.1); CHLORIDE 109 mmol/L (98-107)
[2019-12-12 06:01] LABS: CREATININE 0.84 mg/dL (0.55-1.02)
[2019-12-12] MEDS: INSULIN LISPRO 100 UNITS/ML, PEN SQ-INSULIN SCH ×4 (07:00→20:33)
[2019-12-12 07:29] VITALS: BP 149/98
[2019-12-12] MEDS: SODIUM CHLORIDE FLUSH 10ML SYR IVF SCH ×2 (09:00→20:34)
[2019-12-12] MEDS ORDERED: VERAPAMIL 2.5 MG/ML, 2ML ONE (11:01)
[2019-12-12] MEDS ORDERED: LIDOCAINE-MPF 1%, 5ML ONE (11:01)
[2019-12-12] MEDS ORDERED: MIDAZOLAM 1 MG/ML, 2ML ONE ×2 (11:01→12:12)
[2019-12-12] MEDS ORDERED: FENTANYL PF 100 MCG/2ML ONE (11:01)
[2019-12-12] MEDS ORDERED: HEPARIN 1,000 UNITS/ML, 10ML ONE (11:17)
[2019-12-12] MEDS ORDERED: BIVALIRUDIN 250 MG ONE (12:12)
[2019-12-12] MEDS ORDERED: POTASSIUM CHLORIDE 20 MEQ TAB.ER.PRT PO ONE (12:30)
[2019-12-12] MEDS ORDERED: ADENOSINE 60 MG/20 ML ONE (13:07)
[2019-12-12] MEDS: SENNA/DOCUSATE TABLET PO SCH (13:30)
[2019-12-12] MEDS: SPIRONOLACTONE 50 MG TABLET PO SCH (13:33)
[2019-12-12] MEDS: FLUOXETINE HCL 20 MG CAPSULE PO SCH (13:34)
[2019-12-12] MEDS: OMEPRAZOLE 20 MG CAPSULE.DR PO SCH (13:35)
[2019-12-12] MEDS: LACTOBACILLUS CHEW TABLET PO SCH ×3 (13:35→20:33)
[2019-12-12] MEDS: CARVEDILOL 12.5 MG TABLET PO SCH ×2 (13:36→20:35)
[2019-12-12 14:51] VITALS: BP 138/91
[2019-12-12] MEDS ORDERED: FUROSEMIDE 40 MG/4 ML IV ONE (15:30)
[2019-12-12] MEDS: ACETAMINOPHEN 325 MG TABLET PO PRN (18:26)
[2019-12-12 19:50] VITALS: BP 124/77
[2019-12-12] MEDS: ATORVASTATIN 80 MG TABLET PO SCH (20:33)
[2019-12-12] MEDS: LISINOPRIL 10 MG TABLET PO SCH (20:34)
[2019-12-13 01:45] VITALS: BP 133/82
[2019-12-13] MEDS: ASPIRIN 81 MG TABLET CHEW PO SCH (06:09)
[2019-12-13] MEDS: FUROSEMIDE 40 MG/4 ML IV SCH ×2 (06:10→21:04)
[2019-12-13 07:30] VITALS: BP 149/94
[2019-12-13] MEDS: LISINOPRIL 10 MG TABLET PO SCH ×2 (08:55→21:04)
[2019-12-13] MEDS: SPIRONOLACTONE 50 MG TABLET PO SCH (08:55)
[2019-12-13] MEDS: OMEPRAZOLE 20 MG CAPSULE.DR PO SCH (08:55)
[2019-12-13] MEDS: LACTOBACILLUS CHEW TABLET PO SCH ×3 (08:56→21:04)
[2019-12-13] MEDS: CARVEDILOL 12.5 MG TABLET PO SCH ×2 (08:56→21:04)
[2019-12-13] MEDS: INSULIN LISPRO 100 UNITS/ML, PEN SQ-INSULIN SCH ×4 (08:57→21:04)
[2019-12-13] MEDS: SENNA/DOCUSATE TABLET PO SCH (08:57)
[2019-12-13] MEDS: FLUOXETINE HCL 20 MG CAPSULE PO SCH (08:59)
[2019-12-13] MEDS: SODIUM CHLORIDE FLUSH 10ML SYR IVF SCH ×2 (09:00→21:05)
[2019-12-13] MEDS: APIXABAN 5 MG TABLET PO SCH ×2 (09:24→21:03)
[2019-12-13 09:35] LABS: ANION GAP 6 mmol/L (5-15); CALCIUM 8.1 mg/dL (8.5-10.1); CHLORIDE 105 mmol/L (98-107); CREATININE 1.07 mg/dL (0.55-1.02)
[2019-12-13] MEDS: ACETAMINOPHEN 325 MG TABLET PO PRN (11:58)
[2019-12-13 14:10] VITALS: BP 142/72
[2019-12-13 20:43] VITALS: BP 156/94
[2019-12-13] MEDS: ATORVASTATIN 80 MG TABLET PO SCH (21:04)
[2019-12-14 00:58] VITALS: BP 139/84
[2019-12-14] MEDS: ASPIRIN 81 MG TABLET CHEW PO SCH (05:50)
[2019-12-14 06:51] LABS: ANION GAP 8 mmol/L (5-15); CALCIUM 8.4 mg/dL (8.5-10.1); CHLORIDE 103 mmol/L (98-107); CREATININE 0.93 mg/dL (0.55-1.02)
[2019-12-14] MEDS: INSULIN LISPRO 100 UNITS/ML, PEN SQ-INSULIN SCH ×2 (07:05→11:14)
[2019-12-14 07:42] VITALS: BP 134/87
[2019-12-14] MEDS: APIXABAN 5 MG TABLET PO SCH (09:26)
[2019-12-14] MEDS: FLUOXETINE HCL 20 MG CAPSULE PO SCH (09:26)
[2019-12-14] MEDS: SPIRONOLACTONE 50 MG TABLET PO SCH (09:26)
[2019-12-14] MEDS: LACTOBACILLUS CHEW TABLET PO SCH (09:26)
[2019-12-14] MEDS: OMEPRAZOLE 20 MG CAPSULE.DR PO SCH (09:26)
[2019-12-14] MEDS: CARVEDILOL 12.5 MG TABLET PO SCH (09:27)
[2019-12-14] MEDS: SODIUM CHLORIDE FLUSH 10ML SYR IVF SCH (09:29)
[2019-12-14] MEDS: LISINOPRIL 10 MG TABLET PO SCH (09:29)
[2019-12-14] MEDS: FUROSEMIDE 40 MG/4 ML IV SCH (09:29)
[2019-12-14] MEDS: SENNA/DOCUSATE TABLET PO SCH (09:29)
[2019-12-14] MEDS ORDERED: LISI-167 PO (12:13)
[2019-12-14] MEDS ORDERED: CARV12.52 PO (12:13)
[2019-12-14] MEDS ORDERED: ASPI-515 PO (12:13)
[2019-12-14] MEDS ORDERED: SPIR50TA PO (12:13)
[2019-12-14] MEDS ORDERED: ATOR-2 PO (12:13)
[2019-12-14] MEDS ORDERED: APIX5TAB PO (12:13)
[2019-12-14] MEDS ORDERED: FURO40TA6 PO (12:13)
[2019-12-14 12:55] VITALS: BP 136/84
[2019-12-14] MEDS ORDERED: FUROSEMIDE 40 MG TABLET PO SCH (21:00)
== END 2019-12-14 14:08 | disposition home or self-care (01) | DRG 287 ==
LOC: ED 19:37 → EDIP 21:07 → 5SO 21:11
PROVIDERS: ADMIT Internal Medicine; ATTEND Internal Medicine
PROC: 5A09457 Assistance with Respiratory Ventilation, 24-96 Consecutive Hours, Continuous Positive Airway Pressure (ICD-10-PCS; 2019-12-10)
PROC: 4A023N8 Measurement of Cardiac Sampling and Pressure, Bilateral, Percutaneous Approach (ICD-10-PCS; principal; 2019-12-12)
PROC: B211YZZ Fluoroscopy of Multiple Coronary Arteries using Other Contrast (ICD-10-PCS; 2019-12-12)
PROC: B215YZZ Fluoroscopy of Left Heart using Other Contrast (ICD-10-PCS; 2019-12-12)
PROC: 4A033BC Measurement of Arterial Pressure, Coronary, Percutaneous Approach (ICD-10-PCS; 2019-12-12)
DX: I25.119 Atherosclerotic heart disease of native coronary artery with unspecified angina pectoris (principal); D68.69 Other thrombophilia; I48.20 Chronic atrial fibrillation, unspecified; I50.30 Unspecified diastolic (congestive) heart failure; Z79.01 Long term (current) use of anticoagulants; E11.9 Type 2 diabetes mellitus without complications; E78.5 Hyperlipidemia, unspecified; E66.9 Obesity, unspecified; F41.9 Anxiety disorder, unspecified; F32.9 Major depressive disorder, single episode, unspecified; E87.6 Hypokalemia; G47.33 Obstructive sleep apnea (adult) (pediatric); I11.0 Hypertensive heart disease with heart failure; I25.82 Chronic total occlusion of coronary artery; I49.5 Sick sinus syndrome; J44.9 Chronic obstructive pulmonary disease, unspecified; K21.9 Gastro-esophageal reflux disease without esophagitis; K59.00 Constipation, unspecified; I25.5 Ischemic cardiomyopathy; Z79.899 Other long term (current) drug therapy; Z68.32 Body mass index [BMI] 32.0-32.9, adult; Z88.0 Allergy status to penicillin; Z80.9 Family history of malignant neoplasm, unspecified; Z82.49 Family history of ischemic heart disease and other diseases of the circulatory system; Z87.891 Personal history of nicotine dependence; Z83.3 Family history of diabetes mellitus; Z90.710 Acquired absence of both cervix and uterus; Z95.0 Presence of cardiac pacemaker; I25.2 Old myocardial infarction
CPT/HCPCS: 36415; 71045; 78452; 80048; 80053; 82962; 83036; 83735; 83880; 84443; 84484; 85025; 93005; 93017; 93308; 94660; 99285; G0378; J0153; J0583; J1644; J1940; J2250; J2785; J3010; A9502; C9898; J1815

== ENCOUNTER → 2020-06-11 | Outpatient (CLI) | payer MEDICARE ==
[~2020-06-11] MED LIST changes: +ACID1TAB PO; +APIX5TAB PO; +ASPI-515 PO; +ATOR-2 PO; +ATOR40TA78 PO; +DIGO125T85 PO; +FAMO20TA7 PO; +FURO20TA3 PO; +FURO40TA6 PO; +IRBE1TAB37 PO; +LISI-167 PO; +PANT40TA6 PO; +SPIR25TA5 PO; +SPIR50TA PO
== END | disposition home or self-care (01) ==
LOC: STAR 12:30
PROVIDERS: ATTEND Anesthesiology
DX: Z01.812 Encounter for preprocedural laboratory examination (principal); Z20.828 Contact with and (suspected) exposure to other viral communicable diseases
CPT/HCPCS: 36415; 87635

== ENCOUNTER 2020-06-14 07:19 | Day surgery (SDC) | payer MEDICARE ==
[~2020-06-14] VITALS: Ht 165.1 cm; Wt 82.8 kg
[~2020-06-14 07:19] MED LIST changes: +BUPIVACAINE/EPI 0.5% 1:200K ONE; +LIDOCAINE 1%-EPI 1:100K, 20ML ONE
[2020-06-14] MEDS ORDERED: LACTATED RINGERS 1,000 ML IV SCH (08:07)
[2020-06-14] MEDS ORDERED: EMPA10TA PO (08:14)
[2020-06-14] MEDS ORDERED: CARV6.252 PO (08:14)
[2020-06-14] MEDS ORDERED: SITA50TA PO (08:14)
[2020-06-14] MEDS ORDERED: APIX5TAB PO (08:14)
[2020-06-14] MEDS ORDERED: FENTANYL PF 250 MCG/5ML ONE (08:26)
[2020-06-14] MEDS ORDERED: MIDAZOLAM 1 MG/ML, 2ML ONE (08:26)
[2020-06-14] MEDS ORDERED: CHLORHEXIDINE 15 ML UDC MM ONE (08:30)
[2020-06-14 08:37] VITALS: BP 145/84
[2020-06-14] MEDS ORDERED: NALOXONE 0.4 MG/ML, 1ML ONE (08:59)
[2020-06-14] MEDS ORDERED: PANTOPRAZOLE 40MG TABLET PO SCH (09:00)
[2020-06-14] MEDS ORDERED: MEPERIDINE/PF 25MG/0.5ML IVPush PRN (09:00)
[2020-06-14] MEDS ORDERED: LABETALOL 5MG/ML, 20ML IV PRN (09:00)
[2020-06-14] MEDS ORDERED: ACETAMINOPHEN 325 MG TABLET PO PRN (09:00)
[2020-06-14] MEDS ORDERED: TEMPLATE NON-FORMULARY MED. (Sitagliptin Phosphate** (Januvia**) 50 MG) PO SCH (09:00)
[2020-06-14] MEDS ORDERED: APIXABAN 5 MG TABLET PO SCH (09:00)
[2020-06-14] MEDS ORDERED: OXYcodone 5 MG/5 ML ORAL.SOL UDC PO PRN (09:00)
[2020-06-14] MEDS ORDERED: FUROSEMIDE 20 MG TABLET PO SCH (09:00)
[2020-06-14] MEDS ORDERED: FENTANYL PF 100 MCG/2ML IV PRN (09:00)
[2020-06-14] MEDS ORDERED: DIGOXIN 0.125 MG TABLET PO SCH (09:00)
[2020-06-14] MEDS ORDERED: SPIRONOLACTONE 25 MG TABLET PO SCH (09:00)
[2020-06-14] MEDS ORDERED: ALBUTEROL SULFATE 2.5 MG/3 ML NPPB PRN (09:00)
[2020-06-14] MEDS ORDERED: KETOROLAC 30 MG/1 ML IV PRN (09:00)
[2020-06-14] MEDS ORDERED: DIAZEPAM 5 MG/ML, 2ML IVPush PRN (09:00)
[2020-06-14] MEDS ORDERED: PROMETHAZINE 25 MG/ML, 1ML IV PRN (09:00)
[2020-06-14] MEDS ORDERED: HYDROmorphone 2 MG/ML, 1ML IVPush PRN (09:00)
[2020-06-14] MEDS ORDERED: FAMOTIDINE 20 MG TABLET PO SCH (09:00)
[2020-06-14] MEDS ORDERED: TEMPLATE NON-FORMULARY MED. (Empagliflozin (Jardiance) 10 MG) PO SCH (09:00)
[2020-06-14] MEDS ORDERED: hydrALAzine 20 MG/ML, 1ML IV PRN (09:00)
[2020-06-14] MEDS ORDERED: TEMPLATE NON-FORMULARY MED. (Fluoxetine Hcl** 40 MG) PO SCH (09:00)
[2020-06-14] MEDS ORDERED: CARVEDILOL 6.25 MG TABLET PO SCH (09:00)
[2020-06-14] MEDS ORDERED: BUPIVACAINE/PF-EPI 0.5% 1:200K INFIL ONE (09:22)
[2020-06-14] MEDS ORDERED: LIDOCAINE 1%-EPI 1:100K, 30ML INFIL ONE (09:22)
[2020-06-14] MEDS ORDERED: PROPOFOL 10 MG/ML, 20ML ONE (09:50)
[2020-06-14] MEDS ORDERED: DEXAMETHASONE 4 MG/ML, 1ML ONE (09:50)
[2020-06-14] MEDS ORDERED: CEFAZOLIN 1,000 MG ONE (09:50)
[2020-06-14] MEDS ORDERED: ONDANSETRON 2MG/ML, 2ML ONE (09:50)
[2020-06-14] MEDS ORDERED: NEOSTIGMINE 1 MG/ML, 10ML ONE (09:50)
[2020-06-14] MEDS ORDERED: ROCURONIUM 10MG/ML,5ML ONE (09:50)
[2020-06-14] MEDS ORDERED: SUCCINYLCHOLINE 20 MG/ML, 10ML ONE (09:50)
[2020-06-14] MEDS ORDERED: GLYCOPYRROLATE 0.2MG/1ML, 5ML ONE (09:50)
[2020-06-14] MEDS ORDERED: SUGAMMADEX 200 MG/2 ML IVPush ONE (09:50)
[2020-06-14] MEDS ORDERED: ATORVASTATIN 40 MG TABLET PO SCH (21:00)
== END 2020-06-14 12:35 | disposition home or self-care (01) ==
LOC: OUT 07:19
PROVIDERS: ATTEND Orthopaedic Surgery
DX: S43.432A Superior glenoid labrum lesion of left shoulder, initial encounter (principal); S46.012A Strain of muscle(s) and tendon(s) of the rotator cuff of left shoulder, initial encounter; M19.012 Primary osteoarthritis, left shoulder; M65.812 Other synovitis and tenosynovitis, left shoulder; M75.42 Impingement syndrome of left shoulder; M75.52 Bursitis of left shoulder; G89.18 Other acute postprocedural pain; I25.10 Atherosclerotic heart disease of native coronary artery without angina pectoris; I48.91 Unspecified atrial fibrillation; E78.2 Mixed hyperlipidemia; E11.9 Type 2 diabetes mellitus without complications; G47.30 Sleep apnea, unspecified; Z79.01 Long term (current) use of anticoagulants; Z79.84 Long term (current) use of oral hypoglycemic drugs; Z79.899 Other long term (current) drug therapy; Z88.0 Allergy status to penicillin; Z90.710 Acquired absence of both cervix and uterus; Z90.49 Acquired absence of other specified parts of digestive tract; Z98.51 Tubal ligation status; Z95.0 Presence of cardiac pacemaker; Z82.49 Family history of ischemic heart disease and other diseases of the circulatory system; X58.XXXA Exposure to other specified factors, initial encounter; Y93.89 Activity, other specified; Y92.89 Other specified places as the place of occurrence of the external cause; Y99.8 Other external cause status
CPT/HCPCS: 29823; 29824; 29826; 64415; 82962; 93005; J0690; J1100; J2250; J2310; J2405; J2704; J3010; J3490; J7120; J2710; J0330